=== PATIENT | female | born 1960 | race Caucasian/White ===

== ENCOUNTER 2016-10-30 10:53 | Emergency (ER) | payer OTHER ==
[2016-10-30 11:19] VITALS: RESP 18
--- NOTE | 2016-10-30 11:59 | XR ---
Right ankle history: Right ankle pain and bleeding 3 views of the right ankle Bone mineralization, joint spaces and alignment are maintained. Soft tissue calcifications are likely due to venous stasis disease. There is soft tissue swelling present. There is a plantar calcaneus sp ur. Lucency in the soft tissues posterior to the ankle joint may be due to nonhealing wound. IMPRESSION: No acute bone abnormality.
--- NOTE | 2016-10-30 12:10 | ED ---
General Adult HPI - General Chief complaint: Wound/Laceration Stated complaint: RT ANKLE WOUND Time Seen by Provider: 10/30/16 11:22 Source: patient, RN notes reviewed Mode of arrival: ambulatory Limitations: no limitations - History of Present Illness Initial comments: Patient 56-year-old female who presents emergency room today with chief complaint of bleeding coming from chronic wound to the medial aspect of the right ankle. Does admit that she follows up with vascular surgeon. States this wound is been there over the last 4 months. States there was some bleeding today. States she's noticed some increased redness locally. Does admit some local pain. Denies any other complaints or symptoms. She states she uses a topical cream but is unsure the name. She states not on any oral antibiotics. Patient denies any recent fever, chills, shortness of breath, chest pain, back pain, abdominal pain, nausea or vomiting, numbness or tingling , dysuria or hematuria, constipation or diarrhea, headaches or visual changes, or any other complaints. - Related Data Home Medications Medication Instructions Recorded Confirmed amLODIPine [Norvasc] 5 mg PO DAILY 03/23/15 10/30/16 Lisinopril-Hctz 20-25 mg 1 tab PO DAILY 03/24/15 10/30/16 [Zestoretic 20-25] Previous Rx's Medication Instructions Recorded Cephalexin [Keflex] 500 mg PO Q12HR 10 Days 10/30/16 Allergies Allergy/AdvReac Type Severity Reaction Status Date / Time No Known Allergies Allergy Verified 10/30/16 11:19 Review of Systems ROS Statement: Those systems with pertinent positive or pertinent negative responses have been documented in the HPI. ROS Other: All systems not noted in ROS Statement are negative. Past Medical History Past Medical History: Cancer, Hypertension Additional Past Medical History / Comment(s): uterine cancer, History of Any Multi-Drug Resistant Organisms: None Reported Past Surgical History: Section, Hysterectomy, Tonsillectomy Past Psychological History: No Psychological Hx Reported Smoking Status: Never smoker Past Alcohol Use History: None Reported Past Drug Use History: None Reported - Past Family History Mother Family Medical History: Cancer Sister(s) Family Medical History: Cancer Additional Family Medical History / Comment(s): 2 SISTERS HAD CANCER Father Family Medical History: Coronary Artery Disease (CAD), Diabetes Mellitus General Exam - General Exam Comments Initial Comments: General: The patient is awake and alert, in no distress, and does not appear acutely ill. Eye: Pupils are equal, round and reactive to light, extra-ocular movements are intact. No nystagmus. There is normal conjunctiva bilaterally. No signs of icterus. Ears, nose, mouth and throat: There are moist mucous membranes and no oral lesions. Neck: The neck is supple, there is no tenderness or JVD. Cardiovascular: There is a regular rate and rhythm. No murmur, rub or gallop is appreciated. Respiratory: Lungs are clear to auscultation, respirations are non-labored, breath sounds are equal. No wheezes, stridor, rales, or rhonchi. Musculoskeletal: Normal ROM, no tenderness. Strength 5/5. Sensation intact. Pulses equal bilaterally 2+. Neurological: A&O x 3. CN II-XII intact, There are no obvious motor or sensory deficits. Coordination appears grossly intact. Speech is normal. Skin: Patient does have ulcer located to the medial aspect of the right ankle. Measures approximately 1 cm across. Yellow drainage. Approximately a half centimeter deep. Local redness or erythema locally. No lymphangitic streaking. Psychiatric: Cooperative, appropriate mood & affect, normal judgment. Limitations: no limitations Course Vital Signs 10/30/16 11:14 Temperature 98.0 F Pulse Rate 86 Respiratory 18 Rate Blood Pressure 171/72 O2 Sat by Pulse 97 Oximetry Medical Decision Making - Medical Decision Making X-ray shows no acute abnormalities. Wound culture currently pending. Patient will be started on Keflex. She does have an appointment with wound care center tomorrow. Patient will be discharged home advised return if symptoms increase or worsen. Disposition Clinical Impression: Wound infection Disposition: HOME SELF-CARE Condition: Good Instructions: Wound Infection (ED) Additional Instructions: Please use medication as discussed. Please follow-up wound care as discussed. Please return to emergency room if the symptoms increase or worsen or for any other concerns. Prescriptions: Cephalexin [Keflex] 500 mg PO Q12HR 10 Days Time of Disposition: 12:08
[2016-10-30 12:30] VITALS: BP 134/74; PULSE 70; TEMP 97.6
== END 2016-10-30 12:22 | disposition home or self-care (01) ==
LOC: EC 10:53
DX: L97.319 Non-pressure chronic ulcer of right ankle with unspecified severity (principal); L08.9 Local infection of the skin and subcutaneous tissue, unspecified; I10 Essential (primary) hypertension; Z79.899 Other long term (current) drug therapy
CPT/HCPCS: 87070; 87077; 87186; 87205; 99283